=== PATIENT | male | born 1980 | race Caucasian/White ===

== ENCOUNTER → 2020-10-22 08:04 | Outpatient (BNVA) | payer OTHER, SELFPAY | PROVIDERS: PCP Internal Medicine; Visit Provider Surgery | DX: Z76.89 Persons encountering health services in other specified circumstances (principal) ==

== ENCOUNTER → 2020-11-16 08:24 | Outpatient (BNVA) | payer OTHER, SELFPAY | PROVIDERS: PCP Internal Medicine; Visit Provider Surgery | DX: Z76.89 Persons encountering health services in other specified circumstances (principal) ==

== ENCOUNTER → 2020-12-03 08:53 | Outpatient (BNVA) | payer OTHER, SELFPAY | PROVIDERS: PCP Internal Medicine; Visit Provider Physician Assistant ==

== ENCOUNTER → 2020-12-07 08:26 | Outpatient (BNVA) | payer OTHER, SELFPAY | PROVIDERS: PCP Internal Medicine; Visit Provider Surgery ==

== ENCOUNTER → 2020-12-12 08:20 | Outpatient (BNVA) | payer OTHER, SELFPAY | PROVIDERS: PCP Internal Medicine; Visit Provider Surgery ==

== ENCOUNTER 2020-12-20 09:12 | Inpatient (IN) | payer OTHER, SELFPAY ==
[2020-12-13 10:42] LABS: Basophils Percent Auto 0.2 % (0-2); Eosinophils Absolute Auto 0.1 X10*3/uL (0.0-0.4); Eosinophils Percent Auto 1.5 % (0-4); Hematocrit 43.9 % (42-52); Hemoglobin 14.8 g/dl (14.0-18.0); Imm Gran Abs Auto 0.01 X10*3/uL (0.00-0.03); Imm Gran Pct Auto 0.2 % (0.0-0.4); Lymphocytes Absolute Auto 1.7 X10*3/uL (1.2-4.9); MANUAL DIFF FLAG SCAN; Mean Corpuscular HGB Conc 33.7 g/dl (31.0-36.0); Mean Corpuscular Hemoglobin 29.5 pg (27.0-33.0); Mean Corpuscular Volume 87.5 fL (80-98); Mean Platelet Volume 9.8 fL (9.4-12.4); Monocytes Absolute Auto 0.3 X10*3/uL (0.1-1.2); Monocytes Percent Auto 6.1 % (2-11); Neutrophils Absolute Auto 2.6 X10*3/uL (2.0-8.3); Platelet Count 219 X10*3/uL (160-400); Red Blood Count 5.02 X10*6/uL (4.60-5.80); Red Cell Distribution Width 13.1 % (11.0-16.0); SCAN SMEAR FLAG 1; White Blood Count 4.6 X10*3/uL (4.8-10.8)
[2020-12-13 10:47] LABS: INTERNATIONAL NORM RATIO 1.1 (0.9-1.1); Prothrombin Time 13.2 SEC (10.8-13.0)
[2020-12-13 10:49] LABS: Partial Thromboplastin Time 31.8 SEC (24.1-38.0)
[2020-12-13 10:57] LABS: Estimated Average Glucose 103 mg/dL; Hemoglobin A1c % 5.2 %
[2020-12-13 11:05] LABS: Alanine Aminotransferase 21 U/L (0-40); Albumin Level 4.8 g/dL (3.5-5.0); Alkaline Phosphatase 71 U/L (39-117); Anion Gap 13 (12-20); Aspartate Amino Transferase 17 U/L (5-37); Bilirubin Total 1.1 mg/dL (0.0-1.0); Blood Urea Nitrogen 17 mg/dL (9-16); C Reactive Protein 0.41 mg/dL (< or = 0.50); Calcium 9.8 mg/dL (8.4-10.2); Carbon Dioxide 30 mmol/L (22-29); Chloride 106 mmol/L (96-108); Cholesterol 164 mg/dL; Estimated Glomerular Filt Rate > 60; Glucose Random 102 mg/dL (60-115); HDL Cholesterol 37 mg/dL; LDL Cholesterol Calculated 113 mg/dl; Potassium 4.9 mmol/L (3.3-5.1); Sodium 144 mmol/L (135-145); Total Protein 7.9 g/dL (6.5-8.0); Triglycerides 73 mg/dL
[2020-12-13 11:24] LABS: SLIDE REVIEW VERIFIED
[2020-12-13 11:28] LABS: TSH reflex Free T4 1.05 uIU/mL (0.32-4.0)
--- NOTE | 2020-12-14 | ECG_ITS ---
Test Reason : AAA PALPITATIONS Blood Pressure : / mmHG Vent. Rate : 076 BPM Atrial Rate : 076 BPM P-R Int : 132 ms QRS Dur : 094 ms QT Int : 364 ms P-R-T Axes : 043 020 025 degrees QTc Int : 409 ms Normal sinus rhythm Possible Left atrial enlargement Left ventricular hypertrophy Abnormal ECG No previous ECGs available Referred By: Sara Garcia Electronically Signed By:ARNULFO FERMIN MD
[2020-12-14 05:28] LABS: Insulin Level Total 11.2 uIU/mL
--- NOTE | 2020-12-14 10:02 | HO.ANESPROP2 ---
Documented by User: Sara Garcia 12/19/20 08:53 HPI - Anesthesia Eval Consult details Narrative: 40yo M for Gastrectomy Sleeve Cardiac cleared Incidental finding of AAA on bariatric surgery work up in 2018. S/P asc aortic valve sparing aortic root replacement with 30-gel weave graft with subcommisural annuloplasty on 11/20/18. PMFSH Active Problems Active Problems: All Active Problems (Updated 12/13/20 @ 14:44 by Tameka Staton) BMI 32.0-32.9,adult (Acute) Obesity (Acute) Hyperuricemia (Acute) Depression (Acute) Morbid obesity (Acute) Past Medical History Medical History Anxiety Depression Gout History of palpitations History of transesophageal echocardiography (RICKY) Hyperlipidemia Hyperuricemia Obesity ZAYRA (obstructive sleep apnea) Thoracic aortic aneurysm Functional capacity: independent ambulation Family History Family history of problems with anesthesia: No Surgical History Surgical History History of esophagogastroduodenoscopy (EGD) Hx of appendectomy Hx of ascending aorta repair Morbid obesity History of Problems with Anesthesia: No Social History Social History Are you a primary hospice care sales consultant to a significant other at home: No Do you presently have visiting nurse or other home services: No Smoking Status: Former smoker Smoking Quit Date: > 5 yrs ago Use of substances other than those prescribed or required for medical reasons: No Have you been hit, kicked, punched, or otherwise hurt by someone within the past year? If so, by whom?: No Advance Directives: No Advance Directives Information Provided: No Advance Directives on File: No Recently lost weight without trying: No Narrative Narrative: No recent illness. >4 mets with walking. Works as [employer]. Meds Allergies Allergy/AdvReac Type Severity Reaction Status Date / Time loperamide [From IMODIUM A-D] Allergy Severe VOMITED Unverified 12/13/20 12:25 BLOOD SEAFOOD Allergy Severe MOUTH Uncoded 12/13/20 12:25 SWELLS Home Medications Medication Instructions Recorded Confirmed Last Taken Type allopurinol 300 mg tablet 150 mg PO DAILY 10/22/20 12/13/20 Unknown History bupropion HCl 100 mg tablet 100 mg PO BID 10/22/20 12/13/20 Unknown History cyclobenzaprine 10 mg tablet 10 mg PO BEDTIME 10/22/20 12/14/20 12/03/20 History hydroxyzine HCl 25 mg tablet 25 mg PO BEDTIME 10/22/20 12/13/20 Unknown History simvastatin 40 mg tablet 40 mg PO DAILY 10/22/20 12/13/20 Unknown History bupropion HCl 1 tab PO BID 12/14/20 12/14/20 Unknown History Exam Exam Date and Time: December 14, 2020 1002 Pertinent Lab Results Pertinent Lab Results: Laboratory Tests 12/13/20 12/13/20 12/13/20 10:08 10:08 10:08 WBC 4.6 L RBC 5.02 Hgb 14.8 Hct 43.9 MCV 87.5 MCH 29.5 MCHC 33.7 RDW 13.1 Plt Count 219 MPV 9.8 Immature Gran % (Auto) 0.2 Neut % (Auto) 56.0 Lymph % (Auto) 36.0 Casey % (Auto) 6.1 Eos % (Auto) 1.5 Baso % (Auto) 0.2 Lymph # (Auto) 1.7 Casey # (Auto) 0.3 Eos # (Auto) 0.1 Baso # (Auto) 0.0 Abs Immat Gran (auto) 0.01 Absolute Neuts (auto) 2.6 Absolute Nucleated RBC 0.000 Nucleated RBC % (auto) 0.0 Smear Tech's Comments VERIFIED PT 13.2 H INR 1.1 APTT 31.8 Sodium 144 Potassium 4.9 Chloride 106 Carbon Dioxide 30 H Anion Gap 13 BUN 17 H Creatinine 1.04 Estim Creat Clear Calc TNP Estimated GFR > 60 Random Glucose 102 Estimat Average Glucose Hemoglobin A1c % Total Insulin Calcium 9.8 Total Bilirubin 1.1 H AST 17 ALT 21 Alkaline Phosphatase 71 C-Reactive Protein 0.41 Total Protein 7.9 Albumin 4.8 Triglycerides 73 Cholesterol 164 LDL Cholesterol, Calc 113 HDL Cholesterol 37 TSH 1.05 Blood Type Antibody Screen 12/13/20 12/13/20 12/13/20 10:08 10:08 10:08 WBC RBC Hgb Hct MCV MCH MCHC RDW Plt Count MPV Immature Gran % (Auto) Neut % (Auto) Lymph % (Auto) Casey % (Auto) Eos % (Auto) Baso % (Auto) Lymph # (Auto) Casey # (Auto) Eos # (Auto) Baso # (Auto) Abs Immat Gran (auto) Absolute Neuts (auto) Absolute Nucleated RBC Nucleated RBC % (auto) Smear Tech's Comments PT INR APTT Sodium Potassium Chloride Carbon Dioxide Anion Gap BUN Creatinine Estim Creat Clear Calc Estimated GFR Random Glucose Estimat Average Glucose 103 Hemoglobin A1c % 5.2 Total Insulin 11.2 Calcium Total Bilirubin AST ALT Alkaline Phosphatase C-Reactive Protein Total Protein Albumin Triglycerides Cholesterol LDL Cholesterol, Calc HDL Cholesterol TSH Blood Type B Negative Antibody Screen NEGATIVE Narrative Narrative: EKG 12/2020 Normal sinus rhythm Possible Left atrial enlargement Left ventricular hypertrophy Abnormal ECG No previous ECGs available Echo 09/2020 Mild LVH Nml LV cavity size and systolic function normal wall motion EF 60-65% paradoxic septal motion c/w prior cardiac surgery Nml LV LV diastolic function RV not well visualized Mild aortic insufficiency s/p aortic root replacement with intact struction and normal aortic root dimension Holter 09/24/20 NSR with rare APCs 2 atrial pairs 1 x 3 beat run Rare PVCs with 1 couplet No pauses No symptoms Brain MRI (for 1 episode of dizziness) 09/2020 Normal Airway Mallampati Class: I TM Dist: >3cm Neck ROM: Full Loose/Missing/Broken Teeth: No Heart: RRR, loud S2, +M Lungs: CTAB Assessment and Plan Assessment Anesthesia Assessment: Anesthesia Plan Discussed and PAT Visit Documented by User: Liane Pantoja 12/20/20 10:43 [facility] Past Medical History Medical History Anxiety Depression Gout History of palpitations History of transesophageal echocardiography (RICKY) Hyperlipidemia Hyperuricemia Obesity ZAYRA (obstructive sleep apnea) Thoracic aortic aneurysm Surgical History Surgical History History of esophagogastroduodenoscopy (EGD) Hx of appendectomy Hx of ascending aorta repair Morbid obesity Social History Social History Are you a primary hospice care sales consultant to a significant other at home: No Do you presently have visiting nurse or other home services: No Smoking Status: Former smoker Smoking Quit Date: > 5 yrs ago Use of substances other than those prescribed or required for medical reasons: No Have you been hit, kicked, punched, or otherwise hurt by someone within the past year? If so, by whom?: No Advance Directives: No Advance Directives Information Provided: No Advance Directives on File: No Recently lost weight without trying: No Meds Allergies Allergy/AdvReac Type Severity Reaction Status Date / Time loperamide [From IMODIUM A-D] Allergy Severe VOMITED Unverified 12/13/20 12:25 BLOOD SEAFOOD Allergy Severe MOUTH Uncoded 12/13/20 12:25 SWELLS Home Medications Medication Instructions Recorded Confirmed Last Taken Type allopurinol 300 mg tablet 150 mg PO DAILY 10/22/20 12/13/20 Unknown History bupropion HCl 100 mg tablet 100 mg PO BID 10/22/20 12/13/20 Unknown History cyclobenzaprine 10 mg tablet 10 mg PO BEDTIME 10/22/20 12/14/20 12/03/20 History hydroxyzine HCl 25 mg tablet 25 mg PO BEDTIME 10/22/20 12/13/20 Unknown History simvastatin 40 mg tablet 40 mg PO DAILY 10/22/20 12/13/20 Unknown History bupropion HCl 1 tab PO BID 12/14/20 12/14/20 Unknown History Exam Height,Weight and Vital Signs: Vital Signs Temp Pulse Resp BP Pulse Ox 12/20/20 09:27 96.7 F L 76 16 130/77 100 Pertinent Lab Results Pertinent Lab Results: 12/20/20: Covid Negative Airway Mallampati Class: I TM Dist: >3cm Neck ROM: Full Heart: RRR + Murmur Lungs: CTAB
[2020-12-14 10:13] VITALS: BMI 33.0
[2020-12-14 10:20] VITALS: BP 145/77; PULSE 95; RESP 20; O2SAT 99
--- NOTE | 2020-12-19 21:02 | MHC.SHP ---
Pre-Procedural Eval Section A The patient is an INPATIENT: Yes The History & Physical has been completed within 30 days and I have reviewed it.: Yes Section B Chief Complaint: severe obesity Details of Present Illness: obesity Relevant Family History (Specify if Yes): No Relevant Social History: None Present Medications: see Short Stay Collaborative assessment Medical History: No relevant PMH History of Previous Operations: No relevant previous surgery Allergies: Allergies Allergy/AdvReac Type Severity Reaction Status Date / Time loperamide [From IMODIUM A-D] Allergy Severe VOMITED Unverified 12/13/20 12:25 BLOOD SEAFOOD Allergy Severe MOUTH Uncoded 12/13/20 12:25 SWELLKamran Review of Systems Sugical H&P ROS: Negative: Constitution, Cardiovascular, Respiratory, Neurological, Psychiatric, Hem-Onc, Allergic/Immunologic, Gastrointestinal, Genitourinary, Musculoskeletal, Integumentary, Endocrine and Eyes/Ears/Nose/Throat Exam Surgical H&P Exam: Normal: HEENT, Normal: Heart, Normal: Lungs, Normal: Extremities, Normal: Abdomen, Normal: Skin and Normal: Neurological Plan Diagnosis/Plan: Unchanged I have reviewed the history and physical and performed a pertinent physical examination on my patient. No changes have occurred unless specified.
[2020-12-20] VITALS (17 sets, daily range): BP systolic 117–165; BP diastolic 66–97; PULSE 56–82; RESP 12–20; TEMP 35.9–36.3; O2SAT 97–100
[2020-12-20 09:43] LABS: COVID-19 Test Negative (Negative)
[2020-12-20] MEDS: Lactated Ringers 1,000 ML 100 ML IVCONT (10:40)
--- NOTE | 2020-12-20 13:49 | PM.OP ---
Brief Operative Note Date of Service: 12/20/20 Pre-op diagnosis: Severe obesity and comorbidities (see below) Post-op diagnosis: same (& diaphragmatic hernia) Procedure: INITIAL PATIENT BMI ON PRESENTATION AT OUR OFFICE: 40.6 kg/m2 LAST BMI BEFORE SURGERY: 36.5 kg/m2 COMORBIDITIES: The patient participated in an intensive weekly lifestyle intervention and exercise program during which the patient has lost between the initial office visit and the last preoperative visit 26.4 lbs, or 11.3% of initial actual body weight. The patient met the BMI-criteria for bariatric surgery based on the BMI on initial presentation. The patient should not be penalized for achieving such weight loss because it is not sustainable long-term without surgical intervention and it was achieved in preparation for bariatric surgery under my direction and based on my published research ([email or web address] and [email or web address]) that a 10% preoperative weight loss improves long-term weight loss after surgery and reduces perioperative complications. Insurance carriers such as [facility] have endorsed my recommendations and have included in their policies criteria to include a 10% preoperative weight loss requirement. PROCEDURE: Esophago-gastroscopy, laparoscopic repair of incarcerated diaphragmatic hernia, laparoscopic sleeve gastrectomy and laparoscopic gastropexy INDICATIONS: This is a 40 year-old male who was electively scheduled for laparoscopic, possibly open sleeve gastrectomy. The risks and complications of the procedure were discussed with the patient in advance, particularly the possibility of ; pulmonary embolism; staple line leak; bleeding; GERD; cardiac, pulmonary, or renal complications; as well as long-term problems such as insufficient weight loss, vitamin deficiency, strictures, or ulcers. The patient understood all the risks, and was in agreement to proceed with surgery. DESCRIPTION OF PROCEDURE: After informed consent was obtained from the patient, the patient was given preoperative antibiotics, and was transferred to the operating room. After successful induction of general anesthesia, pneumatic compressive devices were placed on both lower extremities. An upper endoscopy was performed next. The oropharynx and esophagus appeared to be within normal limits. There was a diaphragmatic hernia present of moderate size that was not reported at the preoperative upper GI. The stomach was entered. Then after all fluid and air were suctioned and the stomach was fully decompressed, the scope was withdrawn and secured in the mid esophagus. The patient was then prepped and draped in the usual sterile manner, and abdominal access was established at the right upper quadrant with the Neo technique. A 12 mm blunt port was inserted, and the abdomen was insufflated with CO2 to a pressure of 15 mmHg. Under direct visualization, additional ports were placed, specifically two 5 mm Versi-step ports to the left upper quadrant, and a 5 mm Versi-Step port to the right upper quadrant. 1% lidocained plan was used to infiltrate all port sites as well as all fascia defects. Following that, the patient was placed in a steep reverse Trendelenburg position. An additional 5 mm port was placed to the right flank for the Mediflex retractor that was used to retract the left lobe of the liver. The gastro-esophageal fat pad was opened with the ultrasonic device (Thunderbeat, Olympus) and the anterior esophagus and hiatus were exposed. The angle of His was opened with the ultrasonic device the fundus of the stomach from any diaphragmatic and splenic attachments. I then opened the gastrocolic ligament between the transverse colon and the greater curvature of the stomach with the ultrasonic device to enter the lesser sac and facilitate the ligation of the short gastric vessels. I started at a mid-point along the greater curvature and using the Thunderbeat, all short gastric vessels were divided all the way to the angle of His until the left ana was completely dissected at its entirety. I then divided the gastro-colic ligament distally to a distance of about 3-4 cm proximal to the esophagus. There was an obvious significant-sized hiatal hernia. I continued dissecting along the hiatus toward the left ana and the angle of His. I fully mobilized the fat pad that was incarcerated in the hernia. The right ana was also fully mobilized. I then continued by dissecting even further into the posterior retro-esophageal space all the way to the angle of His. I continued to mobilize the esophagus into the mediastinum circumferentially. Both vagal nerves were seen and preserved. At that point, I was able to have at least 3 to 5 cm of esophagus into the abdomen. After I completely mobilized the esophagus from both the left and right ana and I had a good mobilization of the esophagus circumferentially, I closed the hernia defect with three interrupted #0 Surgidac sutures using the Endo Stitch device, two which were placed posterior and one anterior to the esophagus. The stomach was then divided transversely with one Endo SARA-45 purple, one SARA-60 purple, 2 SARA-45 orange and three SARA-60 articulating orange loads using the AEON stapler and loads. Every effort was made that the gastric sleeve had a tubular shape and an even caliber throughout. Once the sleeve resection was completed, the staple line of the gastric sleeve was reinforced with Hemoclips. The resected stomach was retrieved without difficulty from the Neo port. A gastropexy was then performed in order to prevent postoperative GERD and partial gastric volvulus. Several interrupted 2.0 Surgidac sutures were placed between the sleeve's staple line and the previously divided greater omentum and gastro-colic ligament using the Endo-Stitch device. An upper endoscopy was performed. There was no narrowing at the GE junction. The scope was easily advanced all the way to the pylorus which was clearly visualized. There was no narrowing anywhere and the sleeve's caliber was even throughout. The sleeve's staple line was inspected and there was no evidence of ischemia, bleeding or dehiscence. At that point the gastroscope was withdrawn from the patient?s mouth while we were decompressing the bowel and the stomach from any remaining air. I looked into the lesser sac to see how the sleeve was situating and it was situating well. There was no bleeding from the staple line, spleen, or short gastric vessels. The Mediflex retractor was removed, and the undersurface of the liver was inspected and there was no bleeding. The patient was placed in supine position. I closed the fascial defect of the 12 mm port site with a figure of eight #1 Polysorb suture. Then 100 cc 0.25 % Marcaine plain with 10 mg of Dexamethasone were used to infiltrate the fascial closure as well as all skin incisions. At this point, the abdomen was deflated, all ports were removed under direct vision, and no bleeding was noted from any of the port sites. The skin incisions were irrigated with saline and were closed with 4-0 absorbable monofilament sutures. Steri-Strips and OpSites were used to cover all incisions. The patient was extubated and was transferred in stable condition to the recovery room for further care. I was present and performed all ortega parts of the procedure. Ms. Pagan was the first sampler. There were no residents to assist with this case. Nate Huggins MD, PhD, FACS Surgeon: Colt Huggins MD Anesthesia: GETA, local and other (TAP block) Bioengineer: Myah Pagan Estimated blood loss (mL): 10 IV fluids (mL): 3,000 Urine output (mL): 0 (No Grewal to record) Pathology: other (Stomach) Condition: stable Disposition: PACU
--- NOTE | 2020-12-20 13:53 | P.DS_ITS ---
DS: Providers Provider Date of Service: 12/24/20 Date of admission: 12/20/20 09:12 Primary care physician: Chase Lezama MD DS: Medications Discharge Medications Home Medications: Home Medications Medication Instructions Recorded Confirmed allopurinol 300 mg tablet 150 mg PO DAILY 10/22/20 12/13/20 bupropion HCl 100 mg tablet 100 mg PO BID 10/22/20 12/13/20 cyclobenzaprine 10 mg tablet 10 mg PO BEDTIME 10/22/20 12/14/20 hydroxyzine HCl 25 mg tablet 25 mg PO BEDTIME 10/22/20 12/13/20 simvastatin 40 mg tablet 40 mg PO DAILY 10/22/20 12/13/20 bupropion HCl 1 tab PO BID 12/14/20 12/14/20 Previous Rx's Medication Instructions Recorded phentermine 37.5 mg capsule 37.5 mg PO DAILY #30 cap 10/22/20 ondansetron HCl 4 mg tablet 4 mg PO ONCE #14 tab 12/12/20 pantoprazole 40 mg tablet,delayed 40 mg PO DAILY #30 tab 12/12/20 release polyethylene glycol 3350 17 gram 17 g PO DAILY #14 ea 12/12/20 oral powder packet sucralfate 100 mg/mL oral 10 ml PO BID #420 ml 12/12/20 suspension DS: Summary Time Spent with Patient Time attestation: ADMITTING DIAGNOSIS: morbid obesity, hyperliidemia, hiatal hernia, depression, hyperurecemia DISCHARGE DIAGNOSIS: same, s/p laparoscopic sleeve gastrectomy and hiatal hernia repair PAST SURGICAL HISTORY: none PROCEDURE: upper endoscopy, laparoscopic sleeve gastrectomy and hiatal hernia repair DISCHARGE SUMMARY: History of Present Illness: The patient is a 40 year-old man with a BMI of 36.4 kg/m2 and associated co- morbidities as described above. The patient had extensive work-up,lost 26.4 lbs preoperatively and was electively scheduled for laparoscopic, possible open sleeve gastrectomy and gastropexy. Risks and complications of the surgery were discussed with the patient in advance, particularly the possibility of , pulmonary embolism, anastomotic leak, bleeding, bowel injury, GERD, cardiac, renal or pulmonary complications. The patient understood all the risks and was in agreement with the surgical plan. Hospital Course: The patient underwent an uneventful laparoscopic sleeve gastrectomy with gastropexy and hiatal hernia repair on the day of admission. Postoperatively, the patient was transferred to the surgical floor. The patient was on IV Acetaminophen and IV dilaudid for pain control. Patient was started on bariatric phase 1 diet POD #0. On postoperative day one, the patient was feeling well without nausea, vomiting, fevers, or tachycardia. The patient had some mild incisional pain. The abdomen was soft. On the morning of postoperative day one, the patient was continued on 1 ounce of water or ice every half hour. During the first day, the patient did fairly well, having some incisional pain, but able to ambulate adequately and to tolerate liquids well. Since the patient is doing well, we decided that the patient was ready to be discharged. The patient was given instructions to follow-up with me next week and to call my office for any fever over 101, persistent abdominal pain, nausea, vomiting, GERD, symptoms of DVT such as calf tenderness, or leg swelling, or pulmonary embolism such as chest pain or shortness of breath. The patient was also instructed to drink 40-60 ounces of liquids per day using the 1-ounce cups. The patient was given prescription for Tylenol for pain, Zofran prn for nausea, and pantoprazole and carafate. The patient was encouraged to ambulate and use the incentive spirometer. The patient was allowed to shower, but no baths, and encouraged to stay active at home. All of these instructions were given to the patient personally. All questions were answered and the patient understood all instructions, the instructions were also given to the patient in print. Total time spent providing and/or coordinating discharge services: Discharge coordination time: Less than 30 minutes Physical Exam Vital Signs: Vital Signs: Last Vital Signs Temp 96.7 F L 12/20/20 09:27 Pulse 76 12/20/20 09:27 Resp 16 12/20/20 09:27 BP 130/77 12/20/20 09:27 Pulse Ox 100 12/20/20 09:27 Body Mass Index 33.0 DS: Data Data Completed and Pending Pending studies at discharge: Pending at discharge 12/20/20 11:58 Surgical [PTH] Routine Labs on day of discharge: Laboratory Results - last 24 hr 12/20/20 09:15 COVID-19 ([facility]) Negative COVID-19 Clin Com See Note Discharge Plan Discharge Anticipated Discharge Date/Time: 12/21/20 23:50 Patient Disposition: Home, Self-Care Referrals: Chase Lezama MD [Primary Care Provider] - Discharge Medications: Continued bupropion HCl 200 mg tablet sustained-release 12 hr 1 tab PO BID RF: 0 hydroxyzine HCl 25 mg tablet 25 mg PO BEDTIME RF: 0 simvastatin 40 mg tablet 40 mg PO DAILY RF: 0 bupropion HCl 100 mg tablet 100 mg PO BID RF: 0 allopurinol 300 mg tablet 150 mg PO DAILY RF: 0 cyclobenzaprine 10 mg tablet 10 mg PO BEDTIME RF: 0 pantoprazole 40 mg tablet,delayed release (DR/EC) 40 mg PO DAILY Qty: 30 RF: 2 sucralfate 100 mg/mL suspension 10 ml PO BID Qty: 420 RF: 2 ondansetron HCl [Zofran] 4 mg tablet 4 mg PO ONCE Qty: 14 RF: 0 Held phentermine 37.5 mg capsule 37.5 mg PO DAILY Qty: 30 RF: 0 Hold Instructions: Discuss restarting with Dr Huggins Discontinued polyethylene glycol 3350 [Miralax] 17 gram powder in packet 17 g PO DAILY Qty: 14 RF: 0 Discharge Orders: Discharge Order (Routine); Ordered 12/21/20 Ordered By: Colt Huggins Diet: other Activity on Discharge: No heavy lifting Stand Alone Forms: Patient Portal Discharge page Activity Restrictions/Additional Instructions: No tub baths, sex or returning to work until discussed at first post op appointment. No exercise, alcohol, tobacco or illegal drug use. Continue to use incentive spirometer hourly while awake. Walk in home for 5- 10 minutes every 2 hours during the first week. Continue phase 1 diet today and start phase 2 diet tomorrow morning. Follow all instructions in the bariatric handbook and call with any questions. Visit Report Forms: Patient Portal Discharge page Care Plan Goals: weight loss Health Concerns: obesity Plan of Treatment: see discharge instructions Discharge Date/Time: 12/21/20 08:45
--- NOTE | 2020-12-20 13:56 | PM.PNGS ---
Subjective Subjective Date of Service: 12/21/20 Interval history: Patient had mild incisional pain but was able to ambulate and use her incentive spirometer. Physical Exam Vital Signs: Vital Signs: Last Vital Signs Temp 96.7 F L 12/20/20 09:27 Pulse 76 12/20/20 09:27 Resp 16 12/20/20 09:27 BP 130/77 12/20/20 09:27 Pulse Ox 100 12/20/20 09:27 Body Mass Index 33.0 GI: Inspection: Yes normal to inspection, Yes incision (clean, dry and intact) and Yes obesity Extrem: Right lower extremity: normal to inspection (no calf tenderness) Left lower extremity: normal to inspection (no calf tenderness) Progress Note: A&P Assessment and plan (1) Obesity: Status: Acute (2) BMI 36.0-36.9,adult: Status: Acute (3) Hyperuricemia: Status: Acute (4) Depression: Status: Acute (5) Hx of ascending aorta repair: Problem details: 11/2018- ascending aortic valve sparing aortic root replacement / gel weave graft with subcommisural annuloplasty- Dr Serrano Status: Acute (6) ZAYRA (obstructive sleep apnea): Status: Acute (7) Diaphragmatic hernia: Status: Acute (8) S/P laparoscopic sleeve gastrectomy: Status: Acute Assessment and Plan: 40 year old Male was admitted 12/20/2020 with morbid obesity and comorbidities. Problem 1: s/p laparoscopic sleeve gastrectomy, gastropexy and repair of diaphragmatic hernia Status: Doing well Plan: Check am labs, If OK, will continue phase 1 bariatric diet and discharge later today. (9) Status post repair of paraesophageal diaphragmatic hernia: Status: Acute (10) GERD (gastroesophageal reflux disease): Status: Acute (11) Hyperlipidemia: Status: Acute (12) Steatosis, liver: Status: Acute (13) Anxiety: Status: Acute (14) Left ventricular hypertrophy: Status: Acute Fall Risk Details Current Medications: Current Medications Generic Name Dose Route Start Last Admin Trade Name Freq PRN Reason Stop Dose Admin Fentanyl 25 mcg 12/20/20 10:43 Fentanyl Citrate/Pf 100 Mcg/2 Ml Vial IVPUSH Q5M PRN Pain, Moderate (Pain Scale 4-6 Hydromorphone HCl 0.5 mg 12/20/20 10:43 Hydromorphone Hcl 0.5 Mg/0.5 Ml Syringe IVPUSH Q5M PRN Pain, Severe (Pain Scale 7-10) Lactated Ringer's 1,000 mls @ 100 mls/hr 12/20/20 09:15 12/20/20 10:40 Lr IVCONT 100 mls/hr .Q10H SEB Administration Ondansetron HCl 4 mg 12/20/20 10:43 Ondansetron Hcl 4 Mg/2 Ml Vial IVPUSH ONCE PRN Nausea and Vomiting Time Spent With Patient Time: Total time spent is greater than 50% in coordination of care (as documented) at patient's floor/unit and/or counseling patient: Time with patient: less than 15 minutes
[2020-12-20] MEDS: Famotidine/PF 20 MG/2 ML VIAL IVPUSH ×2 (14:12→20:21)
[2020-12-20 14:29] LABS: Hematocrit 42.1 % (42-52); Hemoglobin 14.5 g/dl (14.0-18.0)
[2020-12-20] MEDS: HYDROmorphone HCl 0.5 MG/0.5 ML SYRINGE IVPUSH ×2 (14:35→14:40)
[2020-12-20] MEDS: ondansetron HCL 4 MG/2 ML VIAL IVPUSH ×2 (14:36→21:55)
[2020-12-20 14:57] LABS: Anion Gap 12 (12-20); Blood Urea Nitrogen 14 mg/dL (9-16); Carbon Dioxide 29 mmol/L (22-29); Chloride 103 mmol/L (96-108); Creatinine Clr Calc Pharmacy 93.8; Estimated Glomerular Filt Rate > 60; Glucose Random 137 mg/dL (60-115); Potassium 4.5 mmol/L (3.3-5.1); Sodium 139 mmol/L (135-145)
[2020-12-20] MEDS: Lactated Ringers 1,000 ML 125 ML IVCONT (16:58)
[2020-12-20] MEDS: ceFAZolin Sodium/Dextrose,Iso 2 GM/50 ML PIGGYBACK IV (16:59)
[2020-12-20] MEDS: Cyclobenzaprine HCl 10 MG TABLET PO (20:21)
[2020-12-20] MEDS: 0.9 % Sodium Chloride Flush 3 ML SYRINGE IVFLUSH (21:55)
[2020-12-21] MEDS: Lactated Ringers 1,000 ML 125 ML IVCONT (01:42)
[2020-12-21 03:50] VITALS: BP 117/61; PULSE 63; RESP 20; TEMP 36.2; O2SAT 96
[2020-12-21 04:53] LABS: MANUAL DIFF FLAG NO
[2020-12-21 04:56] LABS: Hematocrit 38.3 % (42-52); Hemoglobin 13.2 g/dl (14.0-18.0); Imm Gran Abs Auto 0.02 X10*3/uL (0.00-0.03); Imm Gran Pct Auto 0.3 % (0.0-0.4); Lymphocytes Absolute Auto 0.9 X10*3/uL (1.2-4.9); Lymphocytes Percent Auto 13.6 % (20-40); Mean Corpuscular HGB Conc 34.5 g/dl (31.0-36.0); Mean Corpuscular Hemoglobin 29.7 pg (27.0-33.0); Mean Corpuscular Volume 86.3 fL (80-98); Mean Platelet Volume 9.8 fL (9.4-12.4); Monocytes Absolute Auto 0.3 X10*3/uL (0.1-1.2); Monocytes Percent Auto 3.8 % (2-11); Neutrophils Absolute Auto 5.5 X10*3/uL (2.0-8.3); Neutrophils Percent Auto 82.3 % (45-73); Platelet Count 228 X10*3/uL (160-400); Red Blood Count 4.44 X10*6/uL (4.60-5.80); White Blood Count 6.6 X10*3/uL (4.8-10.8)
[2020-12-21 05:21] LABS: Anion Gap 12 (12-20); Blood Urea Nitrogen 11 mg/dL (9-16); Carbon Dioxide 27 mmol/L (22-29); Chloride 104 mmol/L (96-108); Creatinine Clr Calc Pharmacy 99.1; Estimated Glomerular Filt Rate > 60; Glucose Random 113 mg/dL (60-115); Potassium 4.8 mmol/L (3.3-5.1); Sodium 138 mmol/L (135-145)
[2020-12-21] MEDS: ondansetron HCL 4 MG/2 ML VIAL IVPUSH (06:02)
[2020-12-21] MEDS: Famotidine/PF 20 MG/2 ML VIAL IVPUSH (07:51)
[2020-12-21 08:00] VITALS: BP 129/62; PULSE 73; RESP 18; TEMP 36.3; O2SAT 98
--- NOTE | 2020-12-21 08:50 | MHC.CM.PN ---
EMR REVIEWED, PT ADMITTED S/P LAP SLEEVE GASTRECTOMY AND HIATAL HERNIA REPAIR, CM MET WITH PT WHO REPORTS HE LIVES WITH AND 5YO DAUGHTER, PT IS INDEPENDENT WITH ALL CARE AT HOME, DENIES USE OF DME OR HOME SERVICES, PT DENIES ANY ANTICIPATED NEEDS AT THIS TIME. PT DENIES HAVING HCP AND DECLINES WHEN OFFERED TO COMPLETE WITH CM. PT WAS ABLE TO VERIFY PCP AND PHARMACY. PCP: FIORELLA MURILLO PHARMACY: [facility]
--- NOTE | 2020-12-21 08:58 | HO.POSTANES ---
Post Anesthesia Evaluation Post Anesthesia Evaluation Vital Signs: Vital Signs Temp Pulse Resp BP Pulse Ox 12/21/20 08:00 97.4 F 73 18 129/62 98 12/21/20 03:50 97.2 F 63 20 117/61 96 12/20/20 23:46 98 12/20/20 23:43 97.4 F 67 20 117/66 98 Anesthesia: General Endotracheal-GETA Mental Status: Awake Pain Control: Satisfactory Nausea/Vomiting: None Hydration: Adequate Anesthesia-Related Issues: No Anes. Related Issues
--- NOTE | 2020-12-21 09:27 | MHC.CM.PN ---
PT DISCHARGED HOME SELF-CARE, TRANSPORTED, PT WILL FOLLOW-UP W/SURGEON
== END 2020-12-21 08:45 | disposition home or self-care (01) | DRG 403 ==
LOC: HO.SSSA 13:52 → HO.S3 13:52
PROVIDERS: Physician Assistant; Admitting Provider Surgery; PCP Internal Medicine; Visit Provider Surgery
PROC: 0DB64Z3 Excision of Stomach, Percutaneous Endoscopic Approach, Vertical (ICD-10-PCS; CPT 43845; principal; 2020-12-20 12:20)
DX: E66.01 Morbid (severe) obesity due to excess calories (principal); K44.0 Diaphragmatic hernia with obstruction, without gangrene; K76.0 Fatty (change of) liver, not elsewhere classified; F32.9 Major depressive disorder, single episode, unspecified; F41.9 Anxiety disorder, unspecified; K21.9 Gastro-esophageal reflux disease without esophagitis; M10.9 Gout, unspecified; Z68.36 Body mass index [BMI] 36.0-36.9, adult; E78.5 Hyperlipidemia, unspecified; I51.7 Cardiomegaly; Z20.822 Contact with and (suspected) exposure to COVID-19; Z79.899 Other long term (current) drug therapy
CPT/HCPCS: 43775; 43659; 43281; 36415; 80048; 80053; 80061; 83036; 83525; 84443; 85014; 85018; 85025; 85610; 85730; 86140; 86850; 86900; 86901; 87635; 88307; 88342; 93005; 99024; A4649; J0131; J0690; J1100; J1170; J2250; J2370; J2405; J3010

== ENCOUNTER → 2020-12-28 10:58 | Outpatient (BNVA) | payer OTHER, SELFPAY | PROVIDERS: PCP Internal Medicine; Visit Provider Surgery ==

== ENCOUNTER → 2021-01-23 08:12 | Outpatient (BNVA) | payer OTHER, SELFPAY | PROVIDERS: PCP Internal Medicine; Visit Provider Surgery ==

== ENCOUNTER → 2021-02-20 08:21 | Outpatient (BNVA) | payer OTHER, SELFPAY | PROVIDERS: PCP Internal Medicine; Visit Provider Surgery ==

== ENCOUNTER → 2021-03-25 08:12 | Outpatient (BNVA) | payer OTHER, SELFPAY | PROVIDERS: PCP Internal Medicine; Visit Provider Surgery ==

== ENCOUNTER → 2021-05-10 07:47 | Outpatient (BNVA) | payer OTHER, SELFPAY | PROVIDERS: PCP Internal Medicine; Visit Provider Surgery ==

== ENCOUNTER → 2021-07-12 10:35 | Outpatient (BNVA) | payer OTHER, SELFPAY | PROVIDERS: PCP Internal Medicine; Referring Provider Internal Medicine; Visit Provider Physician Assistant Surgical ==

== ENCOUNTER 2021-07-26 09:16 | Outpatient (REF) | payer OTHER, SELFPAY ==
--- NOTE | ~2021-07-26 | FL_ITS ---
EXAMINATION: XR GI SERIES CLINICAL INFORMATION: Gastroesophageal reflux disease without esophagitis. COMPARISON: Upper GI air-contrast study 05/24/2018. TECHNIQUE: Routine upper GI air-contrast study was performed in upright and lying position. FINDINGS: Following oral administration of thick barium and effervescent granules, there is normal propagation of bolus from the oral cavity through the pharynx, esophagus into the stomach without any evidence of obstruction, narrowing or stricture. On placing patient supine and prone, a small stomach is noted likely from previous intervention. There is moderate gastroesophageal reflux into the upper esophagus but no hiatal hernia seen. The rest of the course, caliber and peristalsis of the stomach and the duodenum is normal. FLUOROSCOPY TIME: 1.9 minutes DOSE AREA PRODUCT: 28.835 uGy-m2 (microgray-meter squared) FL/FL upper GI series IMPRESSION: Moderate to large gastroesophageal reflux in lying position. The stomach appears smaller, most likely from previous gastric reduction/sleeve process. No other abnormality seen.
== END 2021-07-26 09:17 | disposition home or self-care (01) ==
LOC: HO.XRAY 09:16
PROVIDERS: PCP Internal Medicine; Visit Provider Physician Assistant Surgical
DX: K21.9 Gastro-esophageal reflux disease without esophagitis (principal)
CPT/HCPCS: 74240

== ENCOUNTER → 2021-08-15 08:00 | Outpatient (BNVA) | payer OTHER, SELFPAY | PROVIDERS: PCP Internal Medicine; Visit Provider Physician Assistant Surgical | DX: K21.9 Gastro-esophageal reflux disease without esophagitis (principal) ==

== ENCOUNTER → 2021-09-19 08:12 | Outpatient (BNVA) | payer OTHER, SELFPAY | PROVIDERS: PCP Internal Medicine; Visit Provider Physician Assistant Surgical | DX: K21.9 Gastro-esophageal reflux disease without esophagitis (principal) ==

== ENCOUNTER → 2021-10-17 10:56 | Outpatient (BNVA) | payer OTHER, SELFPAY | PROVIDERS: PCP Internal Medicine; Referring Provider Internal Medicine; Visit Provider Physician Assistant Surgical ==

== ENCOUNTER 2022-04-01 12:36 | Outpatient (REF) | payer OTHER, SELFPAY ==
[2022-04-01 13:45] LABS: MANUAL DIFF FLAG NO
[2022-04-01 14:00] LABS: Basophils Percent Auto 0.3 % (0-2); Eosinophils Absolute Auto 0.1 X10*3/uL (0.0-0.4); Eosinophils Percent Auto 1.8 % (0-4); Hematocrit 46.7 % (42.0-52.0); Hemoglobin 16.5 g/dl (14.0-18.0); Imm Gran Abs Auto 0.01 X10*3/uL (0.00-0.03); Imm Gran Pct Auto 0.2 % (0.0-0.4); Lymphocytes Absolute Auto 2.2 X10*3/uL (1.2-4.9); Lymphocytes Percent Auto 34.7 % (20-40); Mean Corpuscular HGB Conc 35.3 g/dl (31.0-36.0); Mean Corpuscular Hemoglobin 30.9 pg (27.0-33.0); Mean Corpuscular Volume 87.5 fL (80.0-98.0); Mean Platelet Volume 9.8 fL (9.4-12.4); Monocytes Absolute Auto 0.4 X10*3/uL (0.1-1.2); Monocytes Percent Auto 6.7 % (2-11); Neutrophils Absolute Auto 3.5 x10*3/uL (2.0-8.3); Neutrophils Percent Auto 56.3 % (45-73); Platelet Count 269 X10*3/uL (160-400); Red Blood Count 5.34 X10*6/uL (4.60-5.80); Red Cell Distribution Width 12.8 % (11.0-16.0); White Blood Count 6.3 X10*3/uL (4.8-10.8)
[2022-04-01 14:42] LABS: Anion Gap 17 (12-20); Blood Urea Nitrogen 19 mg/dL (9-16); C Reactive Protein 0.17 mg/dL (< or = 0.50); Calcium 10.8 mg/dL (8.4-10.2); Carbon Dioxide 27 mmol/L (22-29); Chloride 100 mmol/L (96-108); Cholesterol 250 mg/dL; Estimated Glomerular Filt Rate > 60; Glucose Random 94 mg/dL (60-115); HDL Cholesterol 59 mg/dL; Iron 143 mcg/dL (45-160); LDL Cholesterol Calculated 162 mg/dl; Percent Iron Saturation 34 % (15-50); Sodium 140 mmol/L (135-145); Total Iron Binding Capacity 422 mcg/dL (228-428); Triglycerides 149 mg/dL; Unsaturated Iron Binding 279 ug/dL
[2022-04-01 14:49] LABS: Estimated Average Glucose 105 mg/dL; Hemoglobin A1c % 5.3 %
[2022-04-01 14:53] LABS: Ferritin 87 ng/mL (20-250); TSH reflex Free T4 0.66 uIU/mL (0.32-4.0); Vitamin D 25-OH Total 29.1 ng/mL (>30)
[2022-04-01 15:13] LABS: Folate 15.8 ng/mL (> or = 4.0); Vitamin B12 373 pg/mL (200-900)
[2022-04-04 06:25] LABS: Zinc 89 mcg/dL (60-130)
[2022-04-05 11:21] LABS: Vitamin B1 9 nmol/L (8-30)
[2022-04-05 20:01] LABS: Vitamin A 78 mcg/dL (38-98)
== END 2022-04-01 12:37 | disposition home or self-care (01) ==
LOC: HO.LAB 12:36
PROVIDERS: PCP Internal Medicine; Referring Provider Internal Medicine; Visit Provider Physician Assistant Surgical
DX: E66.3 Overweight (principal); Z98.84 Bariatric surgery status
CPT/HCPCS: 36415; 80048; 80061; 82306; 82607; 82728; 82746; 83036; 83540; 84425; 84443; 84590; 84630; 85025; 86140

== ENCOUNTER → 2022-10-29 11:29 | Outpatient (BNVA) | payer OTHER, SELFPAY | PROVIDERS: PCP Internal Medicine; Visit Provider Physician Assistant Surgical | DX: E66.3 Overweight (principal) ==

== ENCOUNTER → 2022-11-25 11:44 | Outpatient (BNVA) | payer OTHER, SELFPAY | PROVIDERS: PCP Internal Medicine; Referring Provider Internal Medicine; Visit Provider Nurse Practitioner Family | DX: Z13.89 Encounter for screening for other disorder (principal) ==

== ENCOUNTER → 2023-01-22 11:29 | Outpatient (BNVA) | payer OTHER, SELFPAY | PROVIDERS: PCP Internal Medicine; Referring Provider Internal Medicine; Visit Provider Nurse Practitioner Family | DX: Z13.89 Encounter for screening for other disorder (principal) ==